=== PATIENT | female | born 1965 | race Caucasian/White ===

== ENCOUNTER 2019-11-11 09:00 | Outpatient (CLI) | payer MEDICAID ==
[~2019-11-11] VITALS: Ht 165 cm; Wt 84.0 kg
[2019-11-11] MEDS ORDERED: CLON1PAT22 TD (09:12)
[2019-11-11] MEDS ORDERED: OXYC30TA77 PO (09:12)
[2019-11-11] MEDS ORDERED: ATOR40TA PO (09:24)
[2019-11-11] MEDS ORDERED: DIAZ5TAB PO (09:24)
[2019-11-11] MEDS ORDERED: HYDR-700 PO (09:24)
[2019-11-11] MEDS ORDERED: MUPI22OI2 TP (09:24)
[2019-11-11] MEDS ORDERED: PIOG30TA38 PO (09:24)
[2019-11-11] MEDS ORDERED: METO-451 PO (09:24)
[2019-11-11] MEDS ORDERED: RIVA6CAP14 PO (09:24)
[2019-11-11] MEDS ORDERED: CYCL10TA9 PO (09:24)
[2019-11-11] MEDS ORDERED: AMIT50TA3 PO (09:24)
[2019-11-11] MEDS ORDERED: ONDN4T PO (09:24)
[2019-11-11] MEDS ORDERED: METF-397 PO ×2 (09:24)
[2019-11-11] MEDS ORDERED: PANT40TA2 PO (09:24)
[2019-11-11] MEDS ORDERED: MECL-149 PO (09:24)
[2019-11-11] MEDS ORDERED: LEVO125T PO (09:24)
[2019-11-11] MEDS ORDERED: LORA-405 PO (09:24)
[2019-11-11 09:31] VITALS: BP 133/76
[2019-11-11 10:20] LABS: BASOPHILS % (AUTO) 0 % (0-10); EOSINOPHILS % (AUTO) 0 % (0-10); HEMATOCRIT 40 % (35-52); HEMOGLOBIN 12.8 G/DL (11.5-16.0); LYMPHOCYTES # (AUTO) 0.7 X 10^3 (1.0-4.0); LYMPHOCYTES % (AUTO) 8 % (12-44); MEAN CORPUSCULAR HEMOGLOBIN 27 PG (25-34); MEAN CORPUSCULAR HGB CONC 32 G/DL (32-36); MEAN CORPUSCULAR VOLUME 83 FL (80-99); MEAN PLATELET VOLUME 8.9 FL (7.4-10.4); MONOCYTES # (AUTO) 0.2 X 10^3 (0.0-1.0); MONOCYTES % (AUTO) 2 % (0-12); NEUTROPHILS # (AUTO) 7.9 X 10^3 (1.8-7.8); NEUTROPHILS % (AUTO) 90 % (42-75); PLATELET COUNT 333 10^3/uL (130-400); RED CELL DISTRIBUTION WIDTH 14.1 % (10.0-14.5); WHITE BLOOD COUNT 8.8 10^3/uL (4.3-11.0)
[2019-11-11 10:37] LABS: BUN/CREATININE RATIO 12; CALCIUM 9.6 MG/DL (8.5-10.1); CARBON DIOXIDE 21 MMOL/L (21-32); CHLORIDE 102 MMOL/L (98-107); CREATININE SERUM 0.93 MG/DL (0.60-1.30); GFR ESTIMATED > 60; GLUCOSE 248 MG/DL (70-105); POTASSIUM 5.2 MMOL/L (3.6-5.0); SODIUM 134 MMOL/L (135-145)
[2019-11-11 10:52] LABS: BAND NEUTROPHILS 2 %; BASOPHILS % (MANUAL) 0 %; EOSINOPHILS % (MANUAL) 0 %; LYMPHOCYTES % (MANUAL) 7 %; MONOCYTES % (MANUAL) 0 %; NEUTROPHILS % (MANUAL) 91 %; RBC MORPH NORMAL
== END 2019-11-11 12:23 | disposition home or self-care (01) ==
LOC: PREOP 09:00
PROVIDERS: ATTEND Otolaryngology Otolaryngology/Facial Plastic Surgery
DX: Z01.818 Encounter for other preprocedural examination (principal); J34.81 Nasal mucositis (ulcerative)
CPT/HCPCS: 36415; 80048; 85007; 85027; 87081; 93005